=== PATIENT | female | born 1995 | race Caucasian/White ===

== ENCOUNTER 2016-04-22 12:15 | Emergency (ER) | payer SELFPAY ==
[2016-04-22 12:18] VITALS: BP 127/71; PULSE 65; TEMP 98; BMI 29.8
--- NOTE | 2016-04-22 13:42 | PDOC ---
Suture Removal/Wound Check HPI - History of Present Illness Chief Complaint: Suture/Staple Removal(Here) Stated Complaint: SUTURE REMOVAL Time Seen by Provider: 04/22/16 12:58 History Source: Yes: Patient Exam Limitations: Yes: No Limitations Treated at: [facility] ED - Previous ED Treatment Type of procedure performed on last visit: Yes: Laceration Repair Tetanus Immunization: Yes: Up to Date Antibiotics Prescribed: No Past History - Travel Traveled outside of the country in the last 30 days: No Close contact w/someone who was outside of country & ill: No - Past Medical History Allergies/Adverse Reactions: Allergies No Known Allergies Allergy (Verified 04/22/16 12:19) Home Medications: Ambulatory Orders NK [No Known Home Medication] 04/22/16 General: Yes: no pertinent history - Family History Significant Family History: Yes: no pertinent family hx - Social History Smoking Status: Never smoked Suture Removal/Wound Check PE - Physical Exam Laceration/Wound Check Symptoms: reports: None Current Severity Level: None Maximum Severity Level: None Pain Localization: None Location of Laceration/Wound: right: Chin (scabbed / lifted with peroxide - well -healed abrasion with 12 intact sutures. Well-healed suture line.) *Review of Systems - Review of Systems Able to Perform ROS?: Yes Constitutional: Yes: Symptoms Reported HEENTM: Yes: Symptoms Reported All Other Systems: Reviewed and Negative Medical Decision Making - Medical Decision Making 04/22/16 13:41 Suture removal, *DC/Admit/Observation/Transfer Diagnosis at time of Disposition: Encounter for removal of sutures - Discharge Dispostion Disposition: HOME Condition at time of disposition: Stable Admit: No
== END 2016-04-22 13:53 | disposition home or self-care (01) ==
LOC: JERFT 12:15
DX: Z48.02 Encounter for removal of sutures (principal)
CPT/HCPCS: 99281-25

== ENCOUNTER 2021-07-01 06:24 | Emergency (ER) | payer OTHER ==
[2021-07-01 06:58] VITALS: BP 131/63; PULSE 80; TEMP 98.3; BMI 23.6
== END 2021-07-01 07:36 | disposition home or self-care (01) ==
LOC: JER 06:24
DX: H60.501 Unspecified acute noninfective otitis externa, right ear (principal)
CPT/HCPCS: 99283-25